=== PATIENT | male | born 1990 | race Caucasian/White ===

== ENCOUNTER 2019-10-24 09:14 | Emergency (ER) | payer OTHER ==
[2019-10-24 09:23] VITALS: BP 100/67; PULSE 94; TEMP 98.5; BMI 21.7
--- NOTE | 2019-10-24 09:24 | PDOC ---
History of Present Illness - General Chief Complaint: Cold Symptoms Stated Complaint: SORE THROAT,EAR PAIN Time Seen by Provider: 10/24/19 09:22 History Source: Patient Exam Limitations: No Limitations - History of Present Illness Initial Comments: 29 yo M presents with cough, congestion, subjective fevers for past 3 days. He states he may have been exposed to the flu at work. He states his symptoms have been worsening over the past day, and now he has had sore throat and B/L ear pressure for the past day. No recent travel. Currently afebrile. Did not check at temp at home, but felt chills and sweats over the past 3 days. Past History - Past Medical History Allergies/Adverse Reactions: Allergies Allergy/AdvReac Type Severity Reaction Status Date / Time No Known Allergies Allergy Verified 10/24/19 09:15 Home Medications: Ambulatory Orders NK [No Known Home Medication] 10/24/19 Anemia: No Asthma: No Cancer: No Cardiac Disorders: No CVA: No COPD: No CHF: No Dementia: No Diabetes: No GI Disorders: No Disorders: No HTN: No Hypercholesterolemia: No Kidney Stones: No Liver Disease: No Seizures: No Thyroid Disease: No - Surgical History Abdominal Surgery: No Appendectomy: No Cardiac Surgery: No Cholecystectomy: No Lung Surgery: No Neurologic Surgery: No Orthopedic Surgery: No - Reproductive History Testicular Surgery: No - Immunization History Td Vaccination: Yes TDAP Vaccination: Yes Immunization Up to Date: Yes - Psycho Social/Smoking Cessation Hx Smoking Status: No Smoking History: Former smoker Years of Tobacco Use: 2 Have you smoked in the past 12 months: Yes Number of Cigarettes Smoked Daily: 9 If you are a former smoker, when did you quit?: LAST WEEK Cigars Per Day: 0 Information on smoking cessation initiated: Yes 'Breaking Loose' booklet given: 08/12/16 Hx Alcohol Use: No Drug/Substance Use Hx: Yes (STATES NO LONGER USES) Substance Use Type: Heroin, Marijuana, Tranquilizers Hx Substance Use Treatment: Yes Review of Systems - Review of Systems Able to Perform ROS?: Yes Comments:: GENERAL/CONSTITUTIONAL: +Fever/chills. No weakness. HEAD, EYES, EARS, NOSE AND THROAT: No change in vision. +Ear pain, no discharge. +Sore throat. CARDIOVASCULAR: No chest pain or shortness of breath. RESPIRATORY: +Cough. No wheezing or hemoptysis. GASTROINTESTINAL: No nausea, vomiting, diarrhea or constipation. GENITOURINARY: No dysuria, frequency, or change in urination. MUSCULOSKELETAL: No joint or muscle swelling or pain. No neck or back pain. SKIN: No rash. NEUROLOGIC: No headache, vertigo, loss of consciousness, or change in strength/ sensation. ENDOCRINE: No increased thirst. No abnormal weight change. HEMATOLOGIC/LYMPHATIC: No anemia, easy bleeding, or history of blood clots. ALLERGIC/IMMUNOLOGIC: No hives or skin allergy. *Physical Exam - Vital Signs Last Vital Signs Temp Pulse Resp BP Pulse Ox 98.5 F 94 H 20 100/67 100 10/24/19 09:15 10/24/19 09:15 10/24/19 09:15 10/24/19 09:15 10/24/19 09:15 - Physical Exam GENERAL: Awake, alert, and fully oriented, in no acute distress HEAD: No signs of trauma EYES: PERRLA, EOMI, sclera anicteric, conjunctiva clear ENT: Auricles normal inspection, hearing grossly normal, nares patent, oropharynx clear without exudates. Moist mucosa. +Crusting at the nares B/L, + boggy turbinates B/L NECK: Normal ROM, supple, no lymphadenopathy, JVD, or masses LUNGS: Breath sounds equal, clear to auscultation bilaterally. No wheezes, and no crackles HEART: Regular rate and rhythm, normal S1 and S2, no murmurs, rubs or gallops ABDOMEN: Soft, nontender, normoactive bowel sounds. No guarding, no rebound. No masses EXTREMITIES: Normal range of motion, no edema. No clubbing or cyanosis. No cords, erythema, or tenderness NEUROLOGICAL: Cranial nerves II through XII grossly intact. Normal speech, normal gait. Motor and sensation intact SKIN: Warm, dry, normal turgor, no rashes or lesions noted. Medical Decision Making - Medical Decision Making Flu negative, strep negative. Stable for DC home. Discharge - Discharge Information Problems reviewed: Yes Clinical Impression/Diagnosis: Viral syndrome Condition: Stable Disposition: HOME - Admission No - Follow up/Referral - Patient Discharge Instructions Patient Printed Discharge Instructions: DI for Viral Syndrome - Post Discharge Activity Work/Back to School Note: Back to Work
[2019-10-24] MEDS ORDERED: DEXAMETHASONE SOD PHOSPHATE 10 MG/1 ML VIAL IVPUSH ONE (09:31)
[2019-10-24] MEDS ORDERED: DEXAMETHASONE SOD PHOSPHATE 10 MG/1 ML VIAL ONE (09:33)
== END 2019-10-24 11:22 | disposition home or self-care (01) ==
LOC: FER 09:14
PROC: 3E033GC Introduction of Other Therapeutic Substance into Peripheral Vein, Percutaneous Approach (ICD-10-PCS; principal; 2019-10-24)
DX: B34.9 Viral infection, unspecified (principal); Z87.891 Personal history of nicotine dependence
CPT/HCPCS: 87070; 87804; 87880; 96374; 99284-25; J1100

== ENCOUNTER 2021-04-21 23:40 | Emergency (ER) | payer OTHER ==
[2021-04-21] MEDS ORDERED: DIPHTH,PERTUSS(ACELL),TET 0.5 ML DISP.SYRIN IM ONE ×2 (23:54→23:58)
[2021-04-21] MEDS ORDERED: ACETAMINOPHEN 500 MG TABLET (FP) PO ONE (23:54)
[2021-04-21 23:57] VITALS: BP 90/52; PULSE 82; TEMP 98.7; BMI 22.0
[2021-04-21] MEDS ORDERED: ACETAMINOPHEN 500 MG TABLET (FP) ONE (23:58)
[2021-04-22] MEDS ORDERED: CEPHALEXIN MONOHYDRATE 500 MG CAPSULE (UD) PO ONE (01:53)
[2021-04-22] MEDS ORDERED: CEPHALEXIN MONOHYDRATE 500 MG CAPSULE (UD) ONE (01:55)
== END 2021-04-22 01:57 | disposition home or self-care (01) ==
LOC: FER 23:40
PROC: 3E0234Z Introduction of Serum, Toxoid and Vaccine into Muscle, Percutaneous Approach (ICD-10-PCS; principal; 2021-04-21)
DX: S31.823A Puncture wound without foreign body of left buttock, initial encounter (principal); S69.92XA Unspecified injury of left wrist, hand and finger(s), initial encounter; X99.1XXA Assault by knife, initial encounter
CPT/HCPCS: 70450-TC; 70486-TC; 72125-TC; 73130-TC-LT-FY; 90471; 90715; 99285-25

== ENCOUNTER 2021-05-23 03:05 | Emergency (ER) | payer OTHER ==
[2021-05-23 03:13] VITALS: BP 135/79; PULSE 95; TEMP 98.2; BMI 20.3
== END 2021-05-23 03:50 | disposition home or self-care (01) ==
LOC: FER 03:05
DX: M79.642 Pain in left hand (principal); Y04.8XXA Assault by other bodily force, initial encounter
CPT/HCPCS: 73130-TC-LT-FY; 99284-25